=== PATIENT | female | born 1980 | race Caucasian/White ===

== ENCOUNTER 2017-03-13 17:41 | Emergency (ER) | payer OTHER ==
[~2017-03-13] VITALS: Ht 167.6 cm; Wt 87.1 kg
[~2017-03-13 17:41] MED LIST: CHOL100010 PO; METF500T5 PO; MULT-506 PO
[2017-03-13 17:43] VITALS: PULSE 88; TEMP 36.7; O2SAT 97; Ht 167.6 cm; Wt 87.1 kg
--- NOTE | 2017-03-14 21:29 | EMERGENCY ROOM VISIT NOTE ---
ED Visit Note First contact with patient: 17:55 Chief Complaint: Needle stick injury. History of Present Illness: Ms. Negro is a 36-year-old white female who ambulates into the ED complaining of a needle stick injury to the right thumb. Patient reports she was cleaning up a procedural tray when she was stuck by a needle that was was exposed to a patient's body fluids and blood. She reports he did draw blood. She immediately cleansed her wound with antibacterial soap and water. Associated with her injury she reports she has a mild throbbing pain in the thumb. She rates her discomfort 1/10. Pain is nonradiating. She is not identified any alleviating factors related to the pain. Her pain worsens with palpation. She has not take any medication for pain prior to arrival at the hospital. She denies any associated symptoms. The source patient had already been discharged from the ED. Past Medical History: (1) History of appendectomy (2) Previous section Current Medications: Glucophage, multivitamins. Allergies to Medications: Patient denies. Social History: Patient is currently employed; she feels safe in her home environment; she denies tobacco use. Physical Examination: Vital Signs: Date Time Temp Pulse Resp B/P (MAP) Pulse Ox O2 Delivery O2 Flow Rate FiO2 03/13/17 17:43 36.7 88 18 97 Room Air General: 36-year-old white female in no acute distress, afebrile and hemodynamically stable. Neurological: Awake, alert and oriented to person, place and time. Answering questions appropriately and following commands.. Skin: Warm, dry and pink. Right thumb: Over the distal aspect of the teeth thumb pad patient has a single puncture wound without bleeding, erythema or swelling. ED Course: Work related needlestick injury considered as a significant exposure. Patient was given an explanation of the purpose, she used, limitations and meaning of testing. Patient is given information on prevention of exposure and transmission of body fluid/blood borne pathogens, and hospital confidentially procedures and arranging notification of results. Employee [facility] laboratory tests are collected. Patient was educated about today's findings and instructed on her treatment plan ; she verbalizes understanding and agreement with this plan. Clinical Impression: Percutaneous needle stick injury. Blood pathogen exposure. Disposition: Patient discharged to home in stable condition. Plan: Comfort measures and wound care was discussed. Follow-up with Employee Health. Return to the ED for signs of infection or any new/concerning symptoms.
[2017-07-18] MEDS ORDERED: ASPI81TA28 PO (07:26)
== END 2017-03-13 18:18 | disposition home or self-care (01) ==
LOC: C.EDB 17:42 → C.EDD 18:18
DX: S61.031A Puncture wound without foreign body of right thumb without damage to nail, initial encounter (principal); Z77.21 Contact with and (suspected) exposure to potentially hazardous body fluids; W46.1XXA Contact with contaminated hypodermic needle, initial encounter; Y92.89 Other specified places as the place of occurrence of the external cause; Y99.0 Civilian activity done for income or pay

== ENCOUNTER → 2017-05-14 | Outpatient (CLI) | payer OTHER ==
[2017-05-14 09:37] LABS: BASO % 0.5 %; BASO ABS # 0.03 K/uL (0-0.2); COMPLETE YES; EOS % 3.3 %; HEMATOCRIT 37.9 % (37-47); IG% 0.2 %; LYMPH % 29.2 %; LYMPH ABS # 1.76 K/uL (1.2-3.4); MEAN CELL VOLUME 85.7 fL (80-100); MEAN CORPUSCULAR HEMOGLOBIN 28.1 pg (25-34); MEAN CORPUSCULAR HGB CONC 32.7 g/dl (32-36); MEAN PLATELET VOLUME 10.3 fL (7.4-10.4); MONO % 7.5 %; NEUT % 59.3 %; PLATELET COUNT 264 K/uL (130-400); RED BLOOD COUNT 4.42 M/uL (4.2-5.4); WHITE BLOOD COUNT 6.02 K/uL (4.8-10.8)
[2017-05-14 09:51] LABS: ALT/SGPT 39 U/L (12-78); BLOOD UREA NITROGEN 9 mg/dl (7-18); BUN/CREATININE RATIO 13.7 (10-20); CALCIUM 9.2 mg/dl (8.5-10.1); CARBON DIOXIDE 27 mmol/L (21-32); CHLORIDE 105 mmol/L (98-107); CHOLESTEROL 190 mg/dl (0-200); CREATININE 0.67 mg/dl (0.60-1.20); GLUCOSE 90 mg/dl (70-99); SODIUM 139 mmol/L (136-145); TRIGLYCERIDES 173 mg/dl (0-150); VERY LOW DENSITY LIPOPROT CALC 35 mg/dl
[2017-05-14 10:02] LABS: ALB/GLOB RATIO 1.1 (0.9-2); ALKALINE PHOSPHATASE 56 U/L (45-117); AST/SGOT 24 U/L (15-37); CHOLESTEROL/HDL RATIO 4.3; HDL CHOLESTEROL 44 mg/dl; LDL CHOLESTEROL CALCULATED 111 mg/dl
== END | disposition home or self-care (01) ==
LOC: C.LAB 07:49
PROVIDERS: ATTEND Family Medicine
DX: G45.9 Transient cerebral ischemic attack, unspecified (principal)

== ENCOUNTER → 2017-05-17 | Outpatient (CLI) | payer OTHER ==
[~2017-05-17] MED LIST changes: +GADAVIST IV PRN
--- NOTE | 2017-05-17 14:39 | DIAGNOSTIC IMAGING REPORT ---
BRAIN COMBO CLINICAL HISTORY: TIA mental status change COMPARISON STUDY: No previous studies for comparison. TECHNIQUE: Utilizing a 1.5 Ailyn magnet and dedicated coil, multiplanar, multiecho imaging of the brain was performed pre and postcontrast administration. IV administration of 8.5 mL of Gadavist contrast was uneventful. FINDINGS: Diffusion images are considered negative for an acute ischemic event. Ventricular system is midline. Coronal FLAIR images show unremarkable signal characteristics throughout. No abnormal foci of altered signal are identified. Sella and parasellar regions are unremarkable. Postcontrast images are considered negative for an enhancing lesion. Internal auditory canals are symmetric. 7th and 8th nerves are uniform in appearance. The globes and optic nerves are unremarkable bilaterally. There is a small venous angioma of the posterior right parietal lobe of no clinical significance. IMPRESSION: Normal study. The above report was generated using voice recognition software. It may contain grammatical, syntax or spelling errors. Electronically signed by: Chris Courtney M.D. 05/17/2017 2:37 PM Dictated Date/Time: 05/17/2017 2:29 PM
== END | disposition home or self-care (01) ==
LOC: C.MRI 13:33
PROVIDERS: ATTEND Family Medicine
DX: G45.9 Transient cerebral ischemic attack, unspecified (principal)

== ENCOUNTER → 2017-07-18 | Outpatient (CLI) | payer OTHER ==
[~2017-07-18] VITALS: Ht 167.6 cm; Wt 84.0 kg
[~2017-07-18] MED LIST changes: +ASPI81TA28 PO; +BENZOCAIN/TETRACA/BUTAM SPRAY 200 APPLN/20 GM SPRY ONE; +CANNULA ONE; +FENTANYL CITRATE INJ 50 MCG/1 ML 2 ML VIAL ONE; -GADAVIST IV PRN; +MIDAZOLAM HCL 1 MG/ML 2ML VIAL ONE
[2017-07-18 07:26] VITALS: Ht 167.6 cm; Wt 84.0 kg
[2017-07-18 07:27] VITALS: BP 118/75; PULSE 74; TEMP 36.8; O2SAT 97
[2017-07-18 08:42] VITALS: BP 142/81; PULSE 78; O2SAT 100
[2017-07-18 08:45] VITALS: BP 140/71; PULSE 78; O2SAT 97
[2017-07-18 08:50] VITALS: BP 137/77; PULSE 85; O2SAT 98
[2017-07-18 08:55] VITALS: BP 138/77; PULSE 83; O2SAT 98
[2017-07-18 09:38] VITALS: BP 117/64; PULSE 73; O2SAT 95
--- NOTE | 2017-07-18 09:46 | Discharge Instructions ---
Discharge Instructions Date of Service Jul 18, 2017. Admission Reason for Admission: Abnormal Tte Discharge Discharge Diagnosis / Problem: KENNY Discharge Goals Goal(s): Diagnostic testing Activity Recommendations Activity Limitations: resume your previous activity Lifting Limitations: none Exercise/Sports Limitations: none May Resume Sexual Activity: when tolerated Shower/Bathe: no limitations Driving or Machine Use: no limitations . Instructions / Follow-Up Instructions / Follow-Up Follow-up with neurology and PCP Current Hospital Diet Patient's current hospital diet: Regular Diet Discharge Diet Recommended Diet: Regular Diet Pending Studies Studies pending at discharge: no Laboratory Results Lipid Panel Test 05/14/17 07:59 Range/Units Triglycerides Level 173 H 0-150 mg/dl Cholesterol Level 190 0-200 mg/dl HDL Cholesterol 44 mg/dl Cholesterol/HDL Ratio 4.3 LDL Cholesterol, Calculated 111 mg/dl Medical Emergencies . Who to Call and When: Medical Emergencies: If at any time you feel your situation is an emergency, please call 911 immediately. . Non-Emergent Contact Non-Emergency issues call your: Primary Care Provider . . "Provider Documentation" section prepared by Colby Davenport. . VTE Core Measure Inpt VTE Proph given/why not?: Treatment not indicated
--- NOTE | 2017-07-18 11:33 | Procedure Note ---
Pre-Mod Sedation Assessment General Date of Moderate Sedation: Jul 18, 2017. Vital Signs: Vital Signs Past 12 Hours Date Time Temp Pulse Resp B/P (MAP) Pulse Ox O2 Delivery O2 Flow Rate FiO2 07/18/17 09:38 73 12 117/64 (81) 95 Room Air 07/18/17 09:25 78 14 129/71 (90) 94 Room Air 07/18/17 09:12 77 14 131/54 (79) 96 Room Air 07/18/17 09:00 88 12 137/72 (93) 98 Nasal Cannula 2 07/18/17 08:59 Nasal Cannula 2 07/18/17 08:55 83 10 138/77 98 Nasal Cannula 2 07/18/17 08:50 85 10 137/77 98 Nasal Cannula 2 07/18/17 08:48 Nasal Cannula 2 07/18/17 08:45 78 17 140/71 97 Nasal Cannula 2 07/18/17 08:42 78 12 142/81 100 Nasal Cannula 2 07/18/17 07:27 36.8 74 12 118/75 97 Room Air Review Cardiovascular: regular rate, rhythm Abdomen: no organomegaly Lungs: lungs clear Pre-Sedation Airway Assessment Oral Cavity: WNL Able to Visualize Vocal Cords: No Short Thick Neck: No Hx of Sleep Apnea: No Smoking Status: Never Smoker Mallampati Classification: Class I (Sft palate,uvula,fauces,pillar) ASA Classification: Class I Procedure Planning Contraindications-for Mod Sed: None Yes Notes The planned sedation has been discussed with the patient and consent obtained. I have identified the patient, determined the appropriateness of sedation and have assessed the patient immediately prior to the procedure. All medicine(s) and interventions are by my order.
--- NOTE | 2017-07-18 11:34 | Procedure Note ---
Post-Mod Sedation Assessment General Date of Moderate Sedation Jul 18, 2017. Vital Signs: Vital Signs Past 12 Hours Date Time Temp Pulse Resp B/P (MAP) Pulse Ox O2 Delivery O2 Flow Rate FiO2 07/18/17 09:38 73 12 117/64 (81) 95 Room Air 07/18/17 09:25 78 14 129/71 (90) 94 Room Air 07/18/17 09:12 77 14 131/54 (79) 96 Room Air 07/18/17 09:00 88 12 137/72 (93) 98 Nasal Cannula 2 07/18/17 08:59 Nasal Cannula 2 07/18/17 08:55 83 10 138/77 98 Nasal Cannula 2 07/18/17 08:50 85 10 137/77 98 Nasal Cannula 2 07/18/17 08:48 Nasal Cannula 2 07/18/17 08:45 78 17 140/71 97 Nasal Cannula 2 07/18/17 08:42 78 12 142/81 100 Nasal Cannula 2 07/18/17 07:27 36.8 74 12 118/75 97 Room Air Review - Discharge Criteria Vital Signs Stable: Yes Alert/Oriented/Conversant: Yes Returned to Baseline Mental St: Yes Nausea Absent/Minimal: Yes Pain/Discomfort/Absent/Minimal: Yes Normal/Baseline Respirations: Yes Active Bleeding?: N/A Pt Received D/C Instructions: Yes Specific Proced. D/C Criteria Distal Pulses Present (Cardiac: Yes Groin site assessed-Card Cath: Yes Voided Prior To Discharge: Yes Discharged Patients Adult Escort/Transportation: Yes
--- NOTE | 2017-07-18 14:51 | TEE ---
*NOTICE TO RECEIVING [employer] This information is strictly Confidential and protected under [place] law. [place] law prohibits you from making any further disclosure of this information unless further disclosure is expressly permitted by the written consent of the person to whom it pertains or is authorized by law. A general authorization for the release of medical or other information is not sufficient for this purpose. Hospital accepts no responsibility if the information is made available to any other person, INCLUDING THE PATIENT. Interpretation Summary * Name: OTTO BROOKS Study Date: 07/18/2017 07:54 AM BP: 118/75 mmHg * Patient Location: [facility] HR: 85 * : 1980 (M/d/yyyy) Gender: Female Height: 66 in * Age: 36 yrs Ethnicity: [place] Weight: 185 lb * Ordering Physician: Colby Davenport DO * Referring Physician: Colby Davenport DO * Performed By: Nika Casarez RCS * * Reason For Study: ABNORMAL TTE * BSA: 1.9 m2 * -- Conclusions -- * Microcavitation study minimally positive. No atrial septal aneurysm. There is a very small low risk PFO. Procedure Details * KENNY PROBE #3 WAS UTILIZED DURING PROCEDURE. START TIME: 841 END TIME: 858 * The study was performed in Cardiopulmonary Department. * Time out was conducted by the physician, nurse, and medical technician assistant with positive identification of patient and procedure. * Informed consent for Transesophageal Echocardiogram was obtained prior to the procedure. * An intravenous line was placed. A topical anesthetic agent was used for oropharangeal anesthesia. A bite block was inserted. * The patient's vital signs, including blood pressure, heart rate, pulse oximetry and cardiac rhythm were monitored throughout the procedure . * Fentanyl 50 mcg was administered for procedural sedation. * Midazolam 3 mg administered for sedation. * The posterior oropharynx was anesthetized using a topical anesthetic spray. A bite guard was inserted. * A multifrequency, multiplane transesopheageal echocardiographic endoscope was inserted and manipulated in the standard fashion to achieve multiplane views. * The transesophageal probe was passed without difficulty. * The usual views were obtained; basal, mid-esophageal, transgastric and aortic views. * The patient tolerated the procedure well without evidence of orophangeal or esophageal trauma. * A 2D transesophageal echocardiogram with spectral and color flow Doppler was performed. * Contrast injection with agitated saline was performed. * A 2D transesophageal echocardiogram with color flow Doppler was performed. Left Ventricle * The left ventricle is normal in size. * There is normal left ventricular wall thickness. * Left ventricular systolic function is normal. * The left ventricular wall motion is normal. Right Ventricle * The right ventricle is normal size. * The right ventricular systolic function is normal. Atria * The left atrial size is normal. * No thrombus is detected in the left atrial appendage. * Right atrial size is normal. * Microcavitation study minimally positive. No atrial septal aneurysm. There is a very small low risk PFO. Mitral Valve * The mitral valve anatomy is normal. * Significant mitral regurgitation is absent. Tricuspid Valve * The tricuspid valve anatomy is normal. * Significant tricuspid regurgitation is absent. Aortic Valve * The aortic valve is normal in structure and function. Pulmonic Valve * The pulmonic valve leaflets are thin and pliable; valve motion is normal. Great Vessels * The aortic root and proximal ascending aorta are normal sized. Pericardium * There is no pericardial effusion. Right Ventricle * The right ventricular wall motion is normal.
== END | disposition home or self-care (01) ==
LOC: C.CPL 06:48
PROVIDERS: ATTEND Internal Medicine Interventional Cardiology
DX: R93.1 Abnormal findings on diagnostic imaging of heart and coronary circulation (principal); I67.82 Cerebral ischemia

== ENCOUNTER → 2018-01-29 | Outpatient (CLI) | payer OTHER ==
[~2018-01-29] MED LIST changes: -BENZOCAIN/TETRACA/BUTAM SPRAY 200 APPLN/20 GM SPRY ONE; -CANNULA ONE; -FENTANYL CITRATE INJ 50 MCG/1 ML 2 ML VIAL ONE; -MIDAZOLAM HCL 1 MG/ML 2ML VIAL ONE
--- NOTE | 2018-01-29 10:20 | DIAGNOSTIC IMAGING REPORT ---
CERVICAL WITHOUT CONTRAST HISTORY: Pain. Neuropathy. CERVICAL RADICULOPATHY TECHNIQUE: Multiplanar multisequence MRI of the cervical spine was performed without the use of contrast. COMPARISON STUDY: None. FINDINGS: Signal characteristics of the vertebral bodies are unremarkable. Signal characteristics of the intervertebral discs are within normal as are signal characteristics of the cervical cord. Posterior extra dural defects are seen at C6-C7 and C5-C6. C2-C3: No significant central canal or neural foraminal narrowing. C3-C4: No significant central canal or neural foraminal narrowing. C4-C5: No significant central canal or neural foraminal narrowing. C5-C6: Mild broad-based bulging disc. Partial effacement of the anterior subarachnoid space. No significant contact with the cervical cord. The lateral neural foramina are patent. C6-C7: Broad-based right central disc herniation. Moderate impact anterior cervical cord. No significant compromise of the neural foramina. C7-T1: No significant central canal or neural foraminal narrowing. IMPRESSION: 1. Prominent right central disc herniation C6-C7 creating moderate impact anterior cervical cord. 2. Broad-based bulging disc C5-C6 showing no significant contact with the cervical cord. 3. Remainder the study is normal. The above report was generated using voice recognition software. It may contain grammatical, syntax or spelling errors. Electronically signed by: Chris Courtney M.D. 01/29/2018 10:18 AM Dictated Date/Time: 01/29/2018 9:56 AM
== END | disposition home or self-care (01) ==
LOC: C.MRIBC 09:04
PROVIDERS: ATTEND Orthopaedic Surgery Orthopaedic Surgery of the Spine
DX: M54.12 Radiculopathy, cervical region (principal); M50.223 Other cervical disc displacement at C6-C7 level

== ENCOUNTER → 2018-04-25 | Outpatient (CLI) | payer OTHER ==
[2018-04-25 11:34] LABS: BLOOD UREA NITROGEN 13 mg/dl (7-18); CARBON DIOXIDE 28 mmol/L (21-32); CHOLESTEROL 174 mg/dl (0-200); CREATININE 0.65 mg/dl (0.60-1.20); GLUCOSE 88 mg/dl (70-99); LDL CHOLESTEROL CALCULATED 100 mg/dl; POTASSIUM 4.2 mmol/L (3.5-5.1); SODIUM 138 mmol/L (136-145)
== END | disposition home or self-care (01) ==
LOC: C.LAB1850 09:00
PROVIDERS: ATTEND Family Medicine
DX: Z13.220 Encounter for screening for lipoid disorders (principal)

== ENCOUNTER 2019-05-28 06:03 | Observation (INO) ==
--- NOTE | 2019-04-30 14:49 | Anesthesiology Consultation ---
Date of Service April 30, 2019 Assessment & Plan (1) Encounter for pre-operative examination: Chart Review Chart Review: Acceptable Risk for Surgery and Patient NOT seen in Pre Admission Testing History Surgery Operation Date: 05/28/19 07:30 Proposed Procedures p C6-C7 Cervical Disc Arthroplasty - London Carranza DO Height/Weight Height: 5 ft 6 in Weight: 83.007 kg Allergies Allergy/AdvReac Type Severity Reaction Status Date / Time erythromycin base Allergy Unknown UNKNOWN Verified 04/24/19 11:45 Macrolide Antibiotics Allergy Unknown ` Verified 04/24/19 11:45 Medications Home Medications Medication Instructions Recorded Confirmed Last Taken ibuprofen [Advil] 200 mg PO QID PRN 04/24/19 04/24/19 Unknown multivitamin 1 tab PO QAM 04/24/19 04/24/19 Unknown Past Medical History Medical History Cervical disc herniation (Chronic) Broad-based right central disc herniation at C6-7 and mild broad-based disc bulge at C5-6 Cervical radiculitis (Chronic) History of TIA (transient ischemic attack) 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 2017. Evaluated by neurology; workup unremarkable except echo showed small PFO. Prophylactic ASA 81mg and statin considered at the time, but patient reports being told by neurology she ultimately did not need these. History of atypical migraine History of thyroid nodule PFO (patent foramen ovale) Per 07/18/17 echo, "there is a very small low risk PFO." Past Surgical History Surgical History History of appendectomy (Resolved) Previous section (Resolved) X 3 History of photorefractive keratectomy (PRK) History of removal of skin mole History of transesophageal echocardiography (KENNY) History of tubal ligation History of wisdom tooth extraction Status post biopsy of thyroid gland Social History Smoking Status: Never smoker Do You Dip or Chew Tobacco: No Hx Alcohol Use: Yes alcohol intake frequency: holidays/special occasions only Hx Substance Use: No substance use type: does not use Testing Laboratory Results 05/13/19 WBC: 6.67 H/H: 12.4/37.1 PLATELETS: 282 04/13/19 SODIUM: 140 POTASSIUM: 3.9 CHLORIDE: 105 CO2: 28 BUN: 12 CREATININE: 0.79 GLUCOSE: 102 TSH: 1.090
--- NOTE | 2019-05-27 11:54 | History and Physical Report ---
DATE OF ADMISSION: 05/28/2019 CHIEF COMPLAINT: Neck pain, scapular pain, numbness, tingling, radiation of pain to the left upper extremity. She has a working diagnosis of disc herniation of the cervical spine at 38 years of age. PAST MEDICAL HISTORY: Positive for chickenpox, but no hypertension, COPD, diabetes mellitus, carcinoma. PAST SURGICAL HISTORY: Appendectomy, x3. ALLERGIES: ERYTHROMYCIN OINTMENT. SOCIAL HISTORY: , 3 children. No alcohol, tobacco. REVIEW OF SYSTEMS: Twelve system review, no fevers, sweats, chills. Denies chest pain, palpitations. No asthma, wheezing, shortness of breath. No bowel and bladder issues. She has numbness, tingling, muscle pain, associated weakness. EXAMINATION: GENERAL: She is 5 feet 6 inches, 190 pounds. VITAL SIGNS: Blood pressure 130/80, pulse 80, respiratory rate 16. HEENT: Pupils react to light and accommodation. Ear, nose and throat clear. CARDIAC: Normal S1, S2, no S3. RESPIRATORY: Lungs clear to auscultation. No rales, rhonchi or wheezing. ABDOMEN: Soft, nontender. She has positive Spurling maneuver and Lhermitte sign, paresthesias, numbness and tingling and weak triceps function. PLAN: Includes a cervical disc arthroplasty at C6-7 and cervical spine.
[~2019-05-28 06:03] MED LIST changes: -ASPI81TA28 PO; +CEFAZOLIN 2000MG 2,000 MG/15 ML SYR IV SCH; -CHOL100010 PO; +LR 15ML/HR IV SCH; -METF500T5 PO; -MULT-506 PO; +SODIUM CHLORIDE 0.9% 1000ML IV SCH
[2019-05-28] MEDS ORDERED: PROPOFOL IV EMULSION 10 MG/ML 20 ML VIAL IV ONE ×2 (06:42→08:27)
[2019-05-28] MEDS ORDERED: HYDROmorphone INJ 2 MG/ML SYR/VIAL ONE (06:42)
[2019-05-28] MEDS ORDERED: DEXAMETHASONE SOD INJ 4 MG/ML VIAL ONE ×3 (06:42→08:07)
[2019-05-28] MEDS ORDERED: ONDANSETRON INJ 2 MG/ML 2 ML VIAL ONE ×2 (06:42→08:08)
[2019-05-28] MEDS ORDERED: ROCURONIUM BROMIDE 10 MG/ML 5 ML VIAL ONE (06:42)
[2019-05-28] MEDS ORDERED: NEOSTIGMINE METHYLSULFATE 5 MG/5 ML SYR ONE (06:42)
[2019-05-28] MEDS ORDERED: MIDAZOLAM HCL 1 MG/ML 2ML VIAL ONE (06:42)
[2019-05-28] MEDS ORDERED: LIDOCAINE HCL 2% 2 ML VIAL/AMP(20MG/ML) INFIL ONE (06:42)
[2019-05-28] MEDS ORDERED: GLYCOPYRROLATE 0.2 MG/ML VIAL ONE (06:42)
[2019-05-28] MEDS ORDERED: fentaNYL citrate 100 MCG/2 ML VIAL ONE ×3 (06:42→09:20)
[2019-05-28] MEDS ORDERED: BUPIVACAINE/EPINEPHRINE 0.5% MPF 1:200,000 30 ML VIAL ONE (07:05)
[2019-05-28] MEDS ORDERED: BACITRACIN INJ 50,000 UNIT VIAL ONE (07:06)
[2019-05-28] MEDS ORDERED: THROMBIN FOR SOLN 20000 UNIT KIT ONE (07:06)
[2019-05-28] MEDS ORDERED: GELATIN SPONGE SZ 100 ONE (07:06)
--- NOTE | 2019-05-28 07:13 | History & Physical Bridge Note ---
Date of Service May 28, 2019 History & Physical Bridge Note I have examined the patient, reviewed the History & Physical and in the interval since the performance of the History & Physical I have noted the following changes of clinical significance: no changes noted
[2019-05-28] MEDS ORDERED: KETAMINE HCL INJ 50 MG/ML 10 ML VIAL ONE (07:46)
[2019-05-28] MEDS ORDERED: ACETAMINOPHEN 1000 MG/100 ML IV IV ONE (08:19)
[2019-05-28] MEDS ORDERED: ePHEDrine sulfate 50 MG/ML AMP IV PRN (08:55)
[2019-05-28] MEDS ORDERED: ATROPINE SULFATE 0.1 MG/ML 10ML SYR IV PRN (08:55)
[2019-05-28] MEDS ORDERED: LABETALOL HCL IV 5 MG/ML 20ML IV PRN (08:55)
[2019-05-28] MEDS ORDERED: NALOXONE HCL 0.4 MG/1 ML VIAL/CARP IV PRN ×2 (08:55→11:23)
[2019-05-28] MEDS ORDERED: PROMETHAZINE HCL 12.5 MG in SODIUM CHLORIDE 0.9% 50 ML IV PRN (08:55)
[2019-05-28] MEDS ORDERED: ONDANSETRON INJ 2 MG/ML 2 ML VIAL IV PRN ×2 (08:55→11:23)
[2019-05-28] MEDS ORDERED: FLUMAZENIL 0.1 MG/1 ML 10 ML VIAL IV PRN (08:55)
--- NOTE | 2019-05-28 09:38 | Post Operative Brief Note ---
PG Immediate Post Op with CF Date of Surgery May 28, 2019 Pre & Post Diagnosis Operation Date: 05/28/19 07:30 Pre-Op Diagnosis: CERVICAL DISC HERNIATION Post-Op Diagnosis: CERVICAL DISC HERNIATION Procedure Operation Date: 05/28/19 07:30 Actual Procedures p C6-C7 Cervical Disc Arthroplasty(Not Applicable) - London Carranza DO Surgeon London Carranza DO Inside Technical Sales Representative liat Estimated Blood Loss 10 Findings Consistent with Post-Op Diagnosis Drains Rodrigo Drain Overlapping Procedure I was immediately available: during the entire case.
--- NOTE | 2019-05-28 09:41 | Post Operative Brief Note ---
PG Immediate Post Op with CF Date of Surgery May 28, 2019 Pre & Post Diagnosis Operation Date: 05/28/19 07:30 Pre-Op Diagnosis: CERVICAL DISC HERNIATION Post-Op Diagnosis: CERVICAL DISC HERNIATION Procedure Operation Date: 05/28/19 07:30 Actual Procedures p C6-C7 Cervical Disc Arthroplasty(Not Applicable) - London Carranza DO Surgeon London Carranza DO Meteorologist Liaison liat Estimated Blood Loss 10 Findings Consistent with Post-Op Diagnosis Drains Rodrigo Drain
--- NOTE | 2019-05-28 09:43 | Fluoroscopy Report ---
FL spine 1V any level HISTORY: Cervical arthroplasty. FLUOROSCOPY TIME: . FINDINGS: Intraoperative fluoroscopy was provided for the cervical spine. 2 fluoroscopic spot images were obtained. IMPRESSION: Fluoroscopy provided for a anterior C6-C7 cervical fusion type procedure. The above report was generated using voice recognition software. It may contain grammatical, syntax or spelling errors. Electronically signed by: Chris Courtney M.D. 05/28/2019 9:42 AM
[2019-05-28] MEDS: HYDROmorphone INJ 1 MG/ML SYRINGE IV PRN ×2 (10:35→10:40)
[2019-05-28] MEDS ORDERED: MAGNESIUM HYDROXIDE SUSP 30 ML UDC PO PRN (11:23)
[2019-05-28] MEDS ORDERED: LORazepam 0.5 MG/1 ML VIAL IV PRN (11:23)
[2019-05-28] MEDS ORDERED: DEXAMETHASONE SOD PHOSPHATE 8 MG in SYRINGE 0 ML IV PRN (11:23)
[2019-05-28] MEDS ORDERED: ACETAMINOPHEN 1,000 MG/100 ML VIAL IV PRN (11:23)
[2019-05-28] MEDS ORDERED: RACEPINEPHRINE 2.25% NEBU SOLN 0.5 ML VIAL INH PRN (11:23)
--- NOTE | 2019-05-28 11:47 | Operative Report ---
DATE OF OPERATION: 05/28/2019 PREOPERATIVE DIAGNOSIS: Spinal cord compression. POSTOPERATIVE DIAGNOSIS: Same. PROCEDURE: Anterior cervical disc arthroplasty, C6-7 cervical spine. SURGEON: London Carranza DO. PAINTING TECHNICIAN: Jayson Navarro PA-C. DESCRIPTION OF PROCEDURE: The patient was identified in the preop holding area. Bridge note provided to the patient. Images reviewed. The patient was taken back to the operating room and general intubated anesthetic provided to the patient. We placed her under 5 pounds of traction just to stabilize her neck. She was scrubbed, prepped, draped sterile. I made a transverse skin incision right over the C5-C6 interval. We came right down to C6-C7 interval of the cervical spine. We put in our self-retaining retractor. We did a formal discectomy at C6-C7. We got all the way out to the uncovertebral joints bilaterally to and through the posterior longitudinal ligament. The entire disc material was removed was vacated. I also scraped the hyaline cartilage off the endplate of C7 and C6. There is no bone destruction. We irrigated. We then went through the sizing sequence with the Mobi-C disc arthroplasty settling on a size 15 mm x 15 mm x 5 mm in height placed into the vacated interval. Cross table lateral radiographs demonstrate appropriate positioning of the implant. We took the patient through flexion, extension on the operative table and was very secure. There was no movement of the disc arthroplasty. We irrigated and closed. Sterile dressings applied closed over a Rodrigo drain. Collar applied. The patient then extubated to PACU stable. There were no complications. ESTIMATED BLOOD LOSS: 10 mL. IMPLANT: Mobi-C. I attest to the content of the Intraoperative Record and any orders documented therein. Any exception s are noted below.
[2019-05-28] MEDS: HYDROmorphone INJ 0.5 MG/0.5 ML SYR IV PRN ×2 (12:33→23:57)
[2019-05-28] MEDS: SODIUM CHLORIDE 0.9% 1000ML 1,000 ML IV SCH (14:48)
[2019-05-28] MEDS: OXYCODONE HCL IR 5 MG TAB (IMMEDIATE RELEASE) PO PRN ×2 (15:34→20:22)
[2019-05-28] MEDS: CEFAZOLIN 2000MG 2,000 MG/15 ML SYR IV SCH ×2 (17:13→23:57)
[2019-05-29] MEDS: SODIUM CHLORIDE 0.9% 1000ML 1,000 ML IV SCH (02:17)
[2019-05-29] MEDS: OXYCODONE HCL IR 5 MG TAB (IMMEDIATE RELEASE) PO PRN ×2 (03:51→07:48)
--- NOTE | 2019-05-29 07:35 | Anesthesiology Progress Note ---
Date of Service May 29, 2019 Anesthesia Post Procedure Vital Signs Vital Signs: Temp Pulse Pulse Pulse Resp BP Pulse Ox 05/29/19 07:00 77 20 98 05/29/19 06:16 37 C 78 16 122/72 98 05/29/19 04:28 37 C 86 18 118/75 96 05/29/19 03:23 82 16 96 05/29/19 02:19 36.8 C 76 16 110/70 98 05/29/19 00:20 37.1 C 103 H 18 134/78 96 05/28/19 23:31 106 H 16 96 05/28/19 22:50 37.3 C 85 14 139/90 96 05/28/19 20:36 37.1 C 90 16 126/84 96 05/28/19 19:14 101 H 16 93 05/28/19 18:37 37.2 C 92 H 12 138/89 96 05/28/19 16:28 37.3 C 95 H 12 142/83 H 97 05/28/19 15:20 88 16 96 05/28/19 14:20 36.8 C 99 H 16 125/78 96 05/28/19 13:28 36.7 C 88 15 131/83 95 05/28/19 12:20 36.8 C 79 15 141/87 H 95 05/28/19 11:52 36.8 C 74 15 144/86 H 97 05/28/19 11:41 89 16 97 05/28/19 11:20 36.4 C L 82 15 130/80 97 05/28/19 11:05 74 14 128/93 97 05/28/19 10:55 36.6 C 64 12 141/86 H 96 05/28/19 10:50 37.3 C 85 14 139/90 96 05/28/19 10:45 67 14 131/94 98 05/28/19 10:35 66 14 155/89 H 98 05/28/19 10:25 72 15 162/99 H 97 05/28/19 10:15 73 10 L 161/98 H 99 05/28/19 10:05 76 14 148/91 H 97 05/28/19 09:55 83 17 136/80 95 05/28/19 09:46 36.4 C L 96 H 15 140/92 98 Pain Intensity Left Upper Neck: Pain Intensity: 7 Upper Neck: Pain Intensity: 6 Transfer of Care Handoff Completed per policy Notes Mental Status: alert / awake / arousable Patient Amnestic to Procedure: Yes Nausea / Vomiting: adequately controlled Pain: adequately controlled Airway Patency, RR, SpO2: stable & adequate BP & HR: stable & adequate Hydration State: stable & adequate Anesthetic Complications: no major complications apparent
--- NOTE | 2019-05-29 08:04 | Anesthesiology Progress Note ---
Date of Service May 29, 2019 Anesthesia Post Procedure Vital Signs Vital Signs: Temp Pulse Pulse Pulse Resp BP Pulse Ox 05/29/19 07:00 77 20 98 05/29/19 06:16 37 C 78 16 122/72 98 05/29/19 04:28 37 C 86 18 118/75 96 05/29/19 03:23 82 16 96 05/29/19 02:19 36.8 C 76 16 110/70 98 05/29/19 00:20 37.1 C 103 H 18 134/78 96 05/28/19 23:31 106 H 16 96 05/28/19 22:50 37.3 C 85 14 139/90 96 05/28/19 20:36 37.1 C 90 16 126/84 96 05/28/19 19:14 101 H 16 93 05/28/19 18:37 37.2 C 92 H 12 138/89 96 05/28/19 16:28 37.3 C 95 H 12 142/83 H 97 05/28/19 15:20 88 16 96 05/28/19 14:20 36.8 C 99 H 16 125/78 96 05/28/19 13:28 36.7 C 88 15 131/83 95 05/28/19 12:20 36.8 C 79 15 141/87 H 95 05/28/19 11:52 36.8 C 74 15 144/86 H 97 05/28/19 11:41 89 16 97 05/28/19 11:20 36.4 C L 82 15 130/80 97 05/28/19 11:05 74 14 128/93 97 05/28/19 10:55 36.6 C 64 12 141/86 H 96 05/28/19 10:50 37.3 C 85 14 139/90 96 05/28/19 10:45 67 14 131/94 98 05/28/19 10:35 66 14 155/89 H 98 05/28/19 10:25 72 15 162/99 H 97 05/28/19 10:15 73 10 L 161/98 H 99 05/28/19 10:05 76 14 148/91 H 97 05/28/19 09:55 83 17 136/80 95 05/28/19 09:46 36.4 C L 96 H 15 140/92 98 Pain Intensity Left Upper Neck: Pain Intensity: 7 Upper Neck: Pain Intensity: 6 Notes Mental Status: alert / awake / arousable and participated in evaluation Patient Amnestic to Procedure: Yes Nausea / Vomiting: adequately controlled Pain: adequately controlled Airway Patency, RR, SpO2: stable & adequate BP & HR: stable & adequate Hydration State: stable & adequate Anesthetic Complications: no major complications apparent and Pt Satisfied with anesthetic care
--- NOTE | 2019-05-29 13:57 | Discharge Summary ---
Barbara is delightful. She is now approximately 20 hours postop from the cervical spine surgery, cervical disc arthroplasty. She seems stable, alert, oriented, no chest pain or shortness of breath, no speaking or swallowing difficulty. She will be discharged home in improved stable condition. Prescriptions on her chart. A followup appointment needs to be made in approximately 10 days post-discharge. Again, it was an uneventful stay and we will see her back routinely in 10-12 days.
[2019-05-30] MEDS ORDERED: BISACODYL 5 MG TABEC PO PRN (09:53)
== END 2019-05-29 08:54 | disposition home or self-care (01) ==
LOC: 3E 06:03 → ASU 06:03